=== PATIENT | male | born 1955 | race Caucasian/White ===

== ENCOUNTER 2017-07-23 10:04 | Inpatient (IN) | payer OTHER ==
[~2017-07-23] VITALS: Ht 167.6 cm; Wt 61.2 kg
[~2017-07-23 10:04] MED LIST: AMLO10TA PO; ASPI81CT89 PO; BENA10TA25 PO; DOCU-299 PO; FINA5TAB1 PO; FURO-570 PO; METO25TE2 PO
[2017-07-23 10:06] VITALS: BP 147/110
--- NOTE | 2017-07-23 10:10 | NUR ---
PATIENT PRESENTS TO ED WITH ABDOMINAL PAIN WITH NAUSEA AND DIARRHEA .SKIN IS PINK/WARM/DRY; AAOX4 WITH EVEN AND STEADY GAIT; PATIENT STATES PAIN OF 5/10 AT THIS TIME; PATIENT POSITIONED FOR COMFORT; HOB ELEVATED; BEDRAILS UP X2; BED DOWN. ER MD MADE AWARE OF PT STATUS.
[2017-07-23] MEDS ORDERED: NACL 0.9% 1,000 ML IV SCH ×2 (10:35→14:18)
[2017-07-23] MEDS ORDERED: DIPHENOXYLATE /ATROPINE 2.5 MG TAB PO ONE (10:35)
[2017-07-23] MEDS ORDERED: ONDANSETRON 4 MG/2 ML VIAL IVP ONE (10:35)
--- NOTE | 2017-07-23 10:58 | NUR ---
PATIENT TAKEN TO CT
[2017-07-23 11:06] LABS: BASOPHILS % (AUTO) 0.2 % (0.0-2.0); EOSINOPHILS # (AUTO) 0.2 K/uL (0-0.4); EOSINOPHILS % (AUTO) 2.5 % (0.0-4.0); HEMATOCRIT 48.3 % (36-52); LYMPHOCYTES # (AUTO) 1.8 K/uL (2.0-11.5); LYMPHOCYTES % (AUTO) 24.7 % (20.5-51.1); MEAN CORPUSCULAR HEMOGLOBIN 28 pg (27-31); MEAN CORPUSCULAR HGB CONC 33 g/dL (33-37); MEAN CORPUSCULAR VOLUME 83.2 fL (80-94); MONOCYTES # (AUTO) 0.5 K/uL (0.8-1.0); MONOCYTES % (AUTO) 6.2 % (1.7-9.3); NEUTROPHILS # (AUTO) 4.9 K/uL (1.8-7.7); NEUTROPHILS % (AUTO) 66.4 % (42.2-75.2); PLATELET COUNT (AUTO) 250 K/uL (140-450); RED CELL DISTRIBUTION WIDTH 15.8 % (11.6-13.7); WHITE BLOOD COUNT (AUTO) 7.4 K/uL (4.8-10.8)
[2017-07-23 11:23] LABS: ALBUMIN 3.4 g/dL (3.4-5.0); ANION GAP 12.9 (8-16); CARBON DIOXIDE 26.3 mmol/L (21-32); CREATININE 1.1 mg/dL (0.7-1.3); POTASSIUM 4.2 mmol/L (3.5-5.1); TOTAL BILIRUBIN 0.9 mg/dL (0.0-1.0)
[2017-07-23 11:30] LABS: APPEARANCE,URINE HAZY (CLEAR); BILIRUBIN,URINE NEGATIVE (NEGATIVE); BLOOD, URINE TRACE-I (NEGATIVE); COLOR,URINE YELLOW (YELLOW); LEUKOCYTE ESTERASE ,URINE NEGATIVE (NEGATIVE); NITRITE, URINE NEGATIVE (NEGATIVE); UGLUCOSE NEGATIVE (NEGATIVE)
[2017-07-23 11:46] LABS: COARSE GRANULAR CASTS,URINE 0-2 /LPF (None Seen); RBC,URINE 0-5 (RARE) /HPF (0-5); WBC,URINE 0-5 (RARE) /HPF (0-5)
--- NOTE | 2017-07-23 14:15 | NUR ---
Michael rothman in [facility] - 07/23/17 at 1418 by CHERYL PATIENT TAKEN TO XRAY
[2017-07-23] MEDS ORDERED: MORPHINE SULFATE 4 MG/ML SYR IVP PRN (14:20)
[2017-07-23] MEDS ORDERED: ACETAMINOPHEN 325 MG TAB PO PRN (14:20)
[2017-07-23] MEDS ORDERED: ONDANSETRON 4 MG/2 ML VIAL IVP PRN (14:20)
--- NOTE | 2017-07-23 14:35 | NUR ---
Patient will be admitted to care of DR. CORTES. Admited to MS. Will go to [id number]. Belongings list completed. Report to LELAND ROBLERO.
[2017-07-23 14:40] VITALS: BP 143/87
--- NOTE | 2017-07-23 14:40 | NUR ---
PT ARRIVED FROM ER IN [facility]. REPORT RECEIVED FROM ER NURSE. PT AWAKE ALERT ORIENTED X4. TRANSFERS SELF FROM [facility] TO BED. RESPIRATIONS EVEN AND UNLABORED. SKIN WARM, DRY, COLOR WITHIN NORMAL LIMITS AND INTACT. INITIAL ASSESSMENT DONE. VITAL SIGNS TAKEN. MRSA SWAB COLLECTED AND SENT TO LAB. PLAN OF CARE REVIEWED. PT ORIENTED TO ROOM AND FLOOR. PT VOICES NO PAIN OR DISCOMFORT. IV SITE INTACT. DAUGHTER AT BEDSIDE. CALL PLASCENCIA WITHIN REACH. SIDE RAILS UP. BED LOCKED IN LOW POSITION. WILL CONTINUE TO MONITOR.
[2017-07-23] MEDS ORDERED: LEVOFLOXACIN 500 MG/D5W PREMIX 100 ML IV SCH (15:00)
[2017-07-23 16:00] VITALS: BP 164/103
--- NOTE | 2017-07-23 16:45 | NUR ---
LELAND ROBLERO SPOKE WITH DR CORTES. PT TO CONTINUE HOME CHEMO MED CABOMETYX. PT MEDICATION SENT TO PHARMACY FOR VERIFICATION.
[2017-07-23] MEDS ORDERED: CABO60TA PO (16:48)
[2017-07-23] MEDS ORDERED: COMMUNICATION ORDER MC SCH (16:55)
[2017-07-23] MEDS ORDERED: CABOMETYX 60 MG PO SCH (17:20)
[2017-07-23 18:55] VITALS: BP 175/92
--- NOTE | 2017-07-23 19:35 | NUR ---
ENDORSED PT TO NIGHT NURSE. PT IN STABLE CONDITION.
--- NOTE | 2017-07-23 19:36 | NUR ---
RECEIVED REPORT FROM DAY SHIFT NURSE FOR CONTINUITY OF CARE. PT AWAKE AOX4. PT IS IN STABLE CONDITION. NO S/S OF DISTRESS. NO SOB.IV LINE RAC 20 NS 50ML/HR. WILL CONTINUE TO MONITOR,.
[2017-07-23] MEDS: METOPROLOL SUCCINATE 50 MG TABER PO SCH (21:23)
[2017-07-23] MEDS: metroNIDAZOLE 500 MG/NS PREMIX 100 ML IV SCH (21:23)
[2017-07-23] MEDS: LOPERAMIDE 2 MG CAP PO PRN (21:23)
--- NOTE | 2017-07-23 22:00 | NUR ---
PT FELT NAUSEA, SO VOMIT BAG GIVEN. WILL CONTINUE TO MONITOR.
[2017-07-24 00:01] VITALS: BP 139/76
--- NOTE | 2017-07-24 00:10 | NUR ---
PT IS AWAKE AND RESTING WATCHING TV NO SOB. NO S/S OF DISTRESS. ON RA. WILL CONTINUE TO MONITOR.
--- NOTE | 2017-07-24 02:36 | NUR ---
PT IS SLEEPING. NO SOB, NO S/S OF DISTRESS. PT ON RA. WILL CONTINUE TO MONITOR.
[2017-07-24 04:00] VITALS: BP 144/81
[2017-07-24] MEDS: metroNIDAZOLE 500 MG/NS PREMIX 100 ML IV SCH ×2 (04:11→14:14)
--- NOTE | 2017-07-24 05:06 | NUR ---
ASSESSED PT PT IS ASLEEP. EASILY AROUSE AND AOX3. NO SOB NO S/S OF DISTRESS.
[2017-07-24 06:37] LABS: BASOPHILS % (AUTO) 0.4 % (0.0-2.0); EOSINOPHILS # (AUTO) 0.1 K/uL (0-0.4); EOSINOPHILS % (AUTO) 2.5 % (0.0-4.0); HEMATOCRIT 40.2 % (36-52); HEMOGLOBIN 13.2 g/dL (12.0-18.0); LYMPHOCYTES # (AUTO) 1.4 K/uL (2.0-11.5); LYMPHOCYTES % (AUTO) 24.6 % (20.5-51.1); MEAN CORPUSCULAR HEMOGLOBIN 28 pg (27-31); MEAN CORPUSCULAR HGB CONC 33 g/dL (33-37); MEAN CORPUSCULAR VOLUME 83.8 fL (80-94); MONOCYTES # (AUTO) 0.4 K/uL (0.8-1.0); MONOCYTES % (AUTO) 6.8 % (1.7-9.3); NEUTROPHILS # (AUTO) 3.7 K/uL (1.8-7.7); NEUTROPHILS % (AUTO) 65.7 % (42.2-75.2); PLATELET COUNT (AUTO) 204 K/uL (140-450); RED CELL DISTRIBUTION WIDTH 15.7 % (11.6-13.7); WHITE BLOOD COUNT (AUTO) 5.7 K/uL (4.8-10.8)
--- NOTE | 2017-07-24 07:32 | NUR ---
GAVE REPORT TO DAY SHIFT NURSE FOR CONTINUITY OF CARE.
--- NOTE | 2017-07-24 07:32 | NUR ---
RECEIVED REPORT FROM LICENSED LOAN OFFICER RN. PATIENT IS AAOX4. HAS NO SIGNS AND SYMPTOMS OF ACUTE DISTRESS NOTED AT THIS TIME. HAS IV TO THE RIGHT AC 20G, INFUSING NS AT 50 ML/HR. SITE IS CLEAN, DRY, PATENT AND INTACT. STILL COMPLAINING OF DIARRHEA. BED IN LOWEST POSITION, SIDE RAILS UP X2, CALL LIGHT WITHIN REACH. WILL CONTINUE TO MONITOR.
[2017-07-24 07:58] LABS: ALBUMIN 2.5 g/dL (3.4-5.0); CARBON DIOXIDE 27.6 mmol/L (21-32); CREATININE 0.9 mg/dL (0.7-1.3); POTASSIUM 4.6 mmol/L (3.5-5.1); TOTAL BILIRUBIN 0.8 mg/dL (0.0-1.0)
[2017-07-24 08:00] VITALS: BP 144/84
[2017-07-24] MEDS ORDERED: ENOXAPARIN 30 MG/0.3 ML SYR SUBQ SCH (09:00)
[2017-07-24] MEDS ORDERED: FUROSEMIDE 40 MG TAB PO SCH (09:00)
[2017-07-24] MEDS ORDERED: amLODIPine 5 MG TAB PO SCH ×2 (09:00)
[2017-07-24] MEDS ORDERED: ASPIRIN 81 MG TAB.CHEW PO SCH (09:00)
[2017-07-24] MEDS ORDERED: FINASTERIDE 5 MG TAB PO SCH (09:00)
[2017-07-24] MEDS: METOPROLOL SUCCINATE 50 MG TABER PO SCH (09:00)
[2017-07-24] MEDS ORDERED: BENAZEPRIL 20 MG TAB PO SCH (09:00)
--- NOTE | 2017-07-24 09:14 | NUR ---
PATIENT HAS BEEN SCREENED AND CATEGORIZED HIGH NUTRITION RISK. PATIENT WILL BE SEEN WITHIN 1-2 DAYS OF ADMISSION. 07/24/17 - 07/25/[address]
[2017-07-24] MEDS: LOPERAMIDE 2 MG CAP PO PRN (09:15)
--- NOTE | 2017-07-24 09:15 | NUR ---
GAVE IMODIUM WITH MORNING MEDS. TOLERATED WELL.
--- NOTE | 2017-07-24 12:18 | NUR ---
FAXED INITIAL REVIEW TO [facility] [phone] PHONE GULSHAN [phone]
--- NOTE | 2017-07-24 15:04 | NUR ---
P.T. NOTES P.T. DANIELA COMPLETED; NURSING TO AMBULATE PATIENT AD ANAYELI. (LATE ENTRY FOR 07/23/17) Addendum: 07/24/17 at 1505 by Viry Flores PT Amended: Links added.
--- NOTE | 2017-07-24 15:17 | NUR ---
07/24/17 RD INITIAL ASSESSMENT COMPLETED PLEASE REFER TO NUTRITION ASSESSMENT UNDER CARE ACTIVITY FOR ESTIMATED NUTRITIONAL NEEDS. 1. CONTINUE 2 GM NA DIET TOLERATED 2. PROVIDE BOOST TO PT IN MEALS 3. PROVIDED NUTRITION EDUCATION FOR ONCOLOGY 4. RD TO FOLLOW-UP 2-3 DAYS, HIGH RISK IAN RAY RD
--- NOTE | 2017-07-24 16:25 | NUR ---
DISCHARGE ORDER IS IN PLACE. GAVE PATIENT INSTRUCTIONS TO FOLLOW UP WITH PRIMARY CARE PHYSICIAN. MADE PATIENT AWARE THAT DR CORTES WROTE HIM A PRESCRIPTION AND THAT IT IS WITH HIS PAPERS. EDUCATED PATIENT ON IMPORTANCE OF DRINKING PLENTY OF FLUIDS IF HE EXPERIENCES MORE DIARRHEA, AND TO EAT A WELL BALANCED DIET. ALSO GAVE EDUCATION ON PRECAUTIONS TO TAKE WHILE ON CHEMOTHERAPY AND PROVIDED EDUCATION PAPERWORK. PATIENT VERBALIZED UNDERSTANDING. REMOVED IV FROM SITE, AND ID BANDS REMOVED. SITE IS CLEAN AND DRY. ALL BELONGINGS ARE WITH PATIENT. WILL WALK OUT WITH PATIENT.
== END 2017-07-24 16:30 | disposition home or self-care (01) | DRG 249 ==
LOC: MED 10:04 → MERGE 12:24 → MMU 12:24 → MTU 13:51
PROVIDERS: ADMIT Hospitalist; ATTEND Hospitalist
DX: K52.1 Toxic gastroenteritis and colitis (principal); C78.00 Secondary malignant neoplasm of unspecified lung; C64.9 Malignant neoplasm of unspecified kidney, except renal pelvis; I10 Essential (primary) hypertension; E78.5 Hyperlipidemia, unspecified; T45.1X5A Adverse effect of antineoplastic and immunosuppressive drugs, initial encounter; Z79.899 Other long term (current) drug therapy; Z90.5 Acquired absence of kidney; Y92.89 Other specified places as the place of occurrence of the external cause; Z79.82 Long term (current) use of aspirin
CPT/HCPCS: 36415; 80053; 81001; 83605; 85025; 85610; 85730; 87040; 87045; 87070; 87081; 87177; 89055; 93005; 96361; 96374; 97140; 99285; J1650; J1956; J2270; J2405; J3490; J7030

== ENCOUNTER 2017-08-14 06:43 | Emergency (ER) | payer OTHER ==
[~2017-08-14] VITALS: Ht 167.6 cm; Wt 54.0 kg
[~2017-08-14 06:43] MED LIST changes: +CABO60TA PO; -DOCU-299 PO; -FURO-570 PO
[2017-08-14 06:47] VITALS: BP 128/76
--- NOTE | 2017-08-14 06:54 | NUR ---
PT.BIB VIA W/C TO ER BED 7
--- NOTE | 2017-08-14 07:00 | NUR ---
62/M CAME IN ED, C/O 2/10 CRAMPING RUQ/DIFFUSE ABD PAIN, X7 HOURS SINCE MIDNIGHT. PT REPORTS N/V X3, D X7. PT DENIES BLOOD IN EMESIS OR BM. BS HYPOACTIVE X4, ABD SOFT, ROUND, SLIGHT TENDERNESS ON RUQ, PT DENIES BL LOWER QUADRANT TENDERNESS. LBM TODAY. MED HX KIDNEY CA, HTN, HLD. PT TAKES CANCER MEDICATIONS. SKIN IS INTACT, PINK/WARM/DRY; AAOX4, PERRL, WITH EVEN AND STEADY GAIT; LUNGS CLEAR BL, BREATHING UNLABORED; HR EVEN AND REGULAR, BL PERIPHERAL PULSES PRESENT; PT DENIES ANY FEVER, CP, SOB, OR COUGH AT THIS TIME; PT STATES 0/10 PAIN AT THIS TIME; VSS; PATIENT POSITIONED FOR COMFORT; HOB ELEVATED; BEDRAILS UP X2; BED DOWN.
--- NOTE | 2017-08-14 07:15 | NUR ---
Pt report given to LELAND SHAW. Transfer of care at this time.
[2017-08-14] MEDS ORDERED: NACL 0.9% 1,000 ML IV SCH (07:37)
[2017-08-14] MEDS ORDERED: ONDANSETRON 4 MG/2 ML VIAL IVP ONE (07:40)
[2017-08-14] MEDS ORDERED: MORPHINE SULFATE 4 MG/ML SYR IVP ONE (07:40)
--- NOTE | 2017-08-14 08:02 | NUR ---
FACIAL GRIMACING NOTED AND ACTIVE VOMITTING, MEDICATED ORDERED. 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 FRIEND AT BEDSIDE.
[2017-08-14 08:04] LABS: BASOPHILS % (AUTO) 0.3 % (0.0-2.0); EOSINOPHILS # (AUTO) 0.1 K/uL (0-0.4); EOSINOPHILS % (AUTO) 2.1 % (0.0-4.0); HEMATOCRIT 47.7 % (36-52); HEMOGLOBIN 15.9 g/dL (12.0-18.0); LYMPHOCYTES # (AUTO) 1.2 K/uL (2.0-11.5); LYMPHOCYTES % (AUTO) 19.7 % (20.5-51.1); MEAN CORPUSCULAR HEMOGLOBIN 29 pg (27-31); MEAN CORPUSCULAR HGB CONC 33 g/dL (33-37); MEAN CORPUSCULAR VOLUME 85.5 fL (80-94); MONOCYTES # (AUTO) 0.3 K/uL (0.8-1.0); MONOCYTES % (AUTO) 4.9 % (1.7-9.3); NEUTROPHILS # (AUTO) 4.3 K/uL (1.8-7.7); PLATELET COUNT (AUTO) 173 K/uL (140-450); RED BLOOD CELL COUNT(AUTO) 5.58 MIL/uL (4.20-6.10); WHITE BLOOD COUNT (AUTO) 5.9 K/uL (4.8-10.8)
--- NOTE | 2017-08-14 08:07 | NUR ---
PT TO CT SCAN.
--- NOTE | 2017-08-14 08:22 | NUR ---
NAKITA MCKNIGHT [phone]. FRIEND WHERE PT RESIDES.
[2017-08-14 08:46] LABS: ALBUMIN 3.8 g/dL (3.4-5.0); ANION GAP 15.6 (8-16); CARBON DIOXIDE 25.3 mmol/L (21-32); CREATININE 1.3 mg/dL (0.7-1.3); POTASSIUM 3.9 mmol/L (3.5-5.1)
[2017-08-14] MEDS ORDERED: NACL 0.9% 1,000 ML IV ONE (10:00)
[2017-08-14 11:10] VITALS: BP 133/72
--- NOTE | 2017-08-14 11:32 | NUR ---
DR SHERMAN AT BEDSIDE FOR RE-EVALUATION, IN NAD. PT REPORTS FEELING BETTER AFTER PAIN AND NAUSEA MED. VSS.
--- NOTE | 2017-08-14 11:46 | NUR ---
Patient discharged with v/s stable. Written and verbal after care instructions given and explained. Patient alert, oriented and verbalized understanding of instructions. Ambulatory with to car. All questions addressed prior to discharge. ID band removed. Patient advised to follow up with PMD. Rx of PERCOCET, ZOFRAN given. Patient educated on indication of medication including possible reaction and side effects. Opportunity to ask questions provided and answered.
[2017-08-14 15:38] LABS: TOTAL BILIRUBIN 1.8 mg/dL (0.0-1.0)
== END 2017-08-14 11:46 | disposition home or self-care (01) ==
LOC: MED 06:43
DX: R19.7 Diarrhea, unspecified (principal); E86.0 Dehydration; R11.2 Nausea with vomiting, unspecified; I10 Essential (primary) hypertension; E78.5 Hyperlipidemia, unspecified; Z79.82 Long term (current) use of aspirin; Z85.528 Personal history of other malignant neoplasm of kidney; Z90.5 Acquired absence of kidney; Z79.899 Other long term (current) drug therapy
CPT/HCPCS: 36415; 74176; 80053; 83605; 83690; 85025; 87040; 96361; 96374; 96375; 99285; J2270

== ENCOUNTER 2017-08-24 23:21 | Observation (INO) | payer OTHER ==
[~2017-08-24] VITALS: Ht 167.6 cm; Wt 44.9 kg
--- NOTE | 2017-08-24 23:27 | NUR ---
PT TAKEN TO BED 11
[2017-08-24 23:35] VITALS: BP 188/109
--- NOTE | 2017-08-24 23:39 | NUR ---
Dr. Gonzalez evaluating patient at bedside.
[2017-08-24] MEDS ORDERED: NITROGLYCERIN 2% 1 GM PKT TP ONE (23:40)
[2017-08-24] MEDS ORDERED: ENALAPRILAT 2.5 MG/2 ML VIAL IVP ONE (23:40)
[2017-08-24] MEDS ORDERED: MORPHINE SULFATE 4 MG/ML SYR IVP ONE (23:40)
[2017-08-24] MEDS ORDERED: LORazepam 2 MG/ML VIAL IVP ONE (23:55)
--- NOTE | 2017-08-24 23:56 | NUR ---
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 PT STATES HE WAS AT REST WHEN PAIN STARTED, CP IS STERNAL AND RADIATING TO BACK 10/10. RR ARE EVEN AND UNLABORED, PT IS MOANING IN PAIN AND RUBBING CHEST. PT STATES HE HAS ACTIVE CANCER OF KIDNEYS AND HTN. PT DOES NOT RECALL IF HE TOOK HIS HTN MEDS THIS AM.
[2017-08-24 23:59] LABS: BASOPHILS % (AUTO) 0.5 % (0.0-2.0); EOSINOPHILS # (AUTO) 0.1 K/uL (0-0.4); EOSINOPHILS % (AUTO) 3.2 % (0.0-4.0); HEMATOCRIT 43.1 % (36-52); HEMOGLOBIN 14.5 g/dL (12.0-18.0); LYMPHOCYTES # (AUTO) 1.7 K/uL (2.0-11.5); LYMPHOCYTES % (AUTO) 36.6 % (20.5-51.1); MEAN CORPUSCULAR HEMOGLOBIN 29 pg (27-31); MEAN CORPUSCULAR HGB CONC 34 g/dL (33-37); MONOCYTES # (AUTO) 0.2 K/uL (0.8-1.0); MONOCYTES % (AUTO) 5.5 % (1.7-9.3); NEUTROPHILS # (AUTO) 2.5 K/uL (1.8-7.7); NEUTROPHILS % (AUTO) 54.2 % (42.2-75.2); PLATELET COUNT (AUTO) 162 K/uL (140-450); RED BLOOD CELL COUNT(AUTO) 5.01 MIL/uL (4.20-6.10); WHITE BLOOD COUNT (AUTO) 4.5 K/uL (4.8-10.8)
[2017-08-25] VITALS (7 sets, daily range): BP systolic 90–134; BP diastolic 57–85
[2017-08-25 00:09] LABS: CARBON DIOXIDE 26.9 mmol/L (21-32); CREATININE 1.1 mg/dL (0.7-1.3); POTASSIUM 3.9 mmol/L (3.5-5.1)
[2017-08-25 00:10] LABS: CHOL/HDL RATIO 5.1 (1-4.5); RED CELL DISTRIBUTION WIDTH 22.8 % (11.6-13.7)
[2017-08-25 00:12] LABS: ALBUMIN 3.4 g/dL (3.4-5.0); TOTAL BILIRUBIN 2.1 mg/dL (0.0-1.0)
[2017-08-25 00:21] LABS: CREATINE KINASE MB 0.7 ng/mL (0-3.6)
[2017-08-25] MEDS ORDERED: ACETAMINOPHEN 325 MG TAB PO PRN (00:25)
[2017-08-25] MEDS ORDERED: ONDANSETRON 4 MG/2 ML VIAL IVP PRN (00:25)
[2017-08-25] MEDS ORDERED: HYDROcodone/APAP 5/325 MG 1 TAB TAB PO PRN (00:25)
[2017-08-25] MEDS ORDERED: MORPHINE SULFATE 4 MG/ML SYR IVP PRN (00:25)
[2017-08-25] MEDS ORDERED: NITROGLYCERIN 0.4 MG TAB SL PRN (00:35)
[2017-08-25] MEDS ORDERED: hydrALAZINE 25 MG TAB PO PRN ×2 (00:35→11:31)
--- NOTE | 2017-08-25 01:15 | NUR ---
RECEIVED PT FROM ER NURSE VIA DELL, DROWSY BUT RESPOND TO VERBAL STIMULI. NO RESPIRATORY DISTRESS NOTED.
--- NOTE | 2017-08-25 01:26 | NUR ---
Patient will be admitted to care of DR. PERLA. Admited to TELE. Will go to [id number]. Belongings list completed. Report to
--- NOTE | 2017-08-25 01:35 | NUR ---
RECEIVED FROM CHARGE NURSE REPORT PT. SLEEPING. FEMALE COUSIN WITH PT. AND ABLE TO ANSWER IN BEHALF OF PT. PT. SLEEPY BUT ABLE TO ANSWER QUESTIONS EVERY NOW AND THEN. AFEBRILE. SKIN INTACT. DX. OF CHEST PAIN. MEDICATED IN ER. TELEMETRY MONITORING. CARE PLANS FOR THE NIGHT DISCUSSED WITH HIM AND COUSIN. CALL LIGHT WITH IN REACH AT BEDSIDE FOR HELP. PLACED ON 02 AT 2 LPM/NC TO KEEP 02 SAT ABOVE 92 %. [address] RT PT. HAVE CHEST PAIN COMPLAINT AND AT PRESENT 02 SAT GOES DOWN TO 91 %. WILL MONITOR CLOSELY. NO EDEMA NOTED.
--- NOTE | 2017-08-25 05:56 | NUR ---
PT. BEEN SLEEPING MOST OF THE TIME. WAKES UP WHEN TOUCHED. ABLE TO VERBALIZE SIMPLE NEEDS. CALL LIGHT WITH IN REACH. NO SOB. NO RESTLESSNESS.
--- NOTE | 2017-08-25 08:00 | NUR ---
RECEIVED REPORT FROM JACYE RN FOR CONTINUITY OF CARE. PATIENT AWAKE A/OX4, NO S/S OF RESP DISTRESS NOTED, NO COMPLAIN OF PAIN. ABLE TO MAKE NEEDS KNOWN. IV SITE RT FOREARM GAUGE 22 ,INTACT AND PATENT. PLAN OF CARE DISCUSSED WITH THE PATIENT VITALS STABLE WILL CONTINUE TO MONITOR.
[2017-08-25] MEDS ORDERED: amLODIPine 5 MG TAB PO SCH (09:00)
[2017-08-25] MEDS ORDERED: METOPROLOL SUCCINATE 50 MG TABER PO SCH (09:00)
--- NOTE | 2017-08-25 09:00 | NUR ---
DUE MEDS GIVEN TOLERATED WELL , NO N/V . DR PERLA VISITED PATIENT NEW ORDER CARRIED OUT.
[2017-08-25] MEDS: FINASTERIDE 5 MG TAB PO SCH (09:11)
[2017-08-25 09:19] LABS: CREATINE KINASE MB 0.6 ng/mL (0-3.6)
--- NOTE | 2017-08-25 09:49 | NUR ---
PATIENT HAS BEEN SCREENED AND CATEGORIZED HIGH NUTRITION RISK. PATIENT WILL BE SEEN WITHIN 1-2 DAYS OF ADMISSION. 08/25/17 08/26/[address]
--- NOTE | 2017-08-25 11:00 | NUR ---
SPOKE WITH REMEDIOS TO BRING CHEMO MEDS , AND TO CLARIFY THE NORVASC.
--- NOTE | 2017-08-25 12:00 | NUR ---
SLEEPING NO DISTRESS NOTED DENIES ANY PAIN VITALS STABLE
--- NOTE | 2017-08-25 13:00 | NUR ---
ASSIST PATIENT TO BATHROOM , UNSTEADY GAIT , SAFETY ENFORCED AND MAINTAINED.
--- NOTE | 2017-08-25 15:17 | NUR ---
FAXED INITIAL REVIEW TO [facility] [phone] PHONE GULSHAN [phone]
--- NOTE | 2017-08-25 15:28 | NUR ---
FAMILY DAUGHTER AT THE BED SIDE STATED NO INFORMATION TO BE GIVEN TO REMEDIOS BECAUSE REMEDIOS IS NOT RELATED TO THE PATIENT. ADVISED DAUGHTER TO GO TO ADMITTING AND SUBMIT ALL THE CONTACT INFORMATION.
[2017-08-25 16:23] LABS: CREATINE KINASE MB 0.5 ng/mL (0-3.6)
--- NOTE | 2017-08-25 18:58 | NUR ---
FAMILY MEMBER DIDN'T QUOC THE CHEMO MEDS , STILL WAITING WILL ENDORSE THE CARE TO COURT COMMISSIONER . SAFETY MAINTAINED CALL LIGHT IN REACH
--- NOTE | 2017-08-25 19:25 | NUR ---
RECEIVED PT IN STABLE CONDITION FROM AM NURSE. PT IS AWAKE,ALERT AND ORIENTED X4. 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 WITH NO C/O ANY DISCOMFORT NOR PAIN NOTED. HAS FAMILY MEMBER AT BEDSIDE. HL ON THE RT AC #22. CLEAR AND PATENT. BED ON LOWEST POSITION, CALL LIGHT AND URINAL PLACED WITHIN EASY REACH.INSTRUCTED TO CALL FOR ANY ASSISTANCE NEEDED. PLAN OF CARE DISCUSSED AND VERBALIZED UNDERSTANDING.
[2017-08-25] MEDS ORDERED: [UNRECOGNIZED DRUG - OTHER] PO SCH (20:00)
[2017-08-25] MEDS: METOPROLOL 25 MG TAB PO SCH (20:42)
--- NOTE | 2017-08-25 22:20 | NUR ---
DR. BELTRAN CALLED AND GET INFORMATION ABOUT PT CONDITION. HE SAID CHARGE NURSE TO CALL HIM TOMORROW FOR ANY UPDATE ON PT.
--- NOTE | 2017-08-26 01:00 | NUR ---
MADE ROUNDS. PT ASLEEP. NO S/S OF ANY DISCOMFORT NOR PAIN NOTED.
--- NOTE | 2017-08-26 03:00 | NUR ---
PT SLEEPING . NO DISTRESS NOR DISCOMFORT NOTED. WILL CONTINUE TO MONITOR.
[2017-08-26 04:35] VITALS: BP 129/79
--- NOTE | 2017-08-26 05:00 | NUR ---
SLEPT WELL DURING THE NIGHT WITH NO CHEST PAIN NOTED.WILL CONTINUE TO MONITOR.
[2017-08-26 06:10] LABS: BASOPHILS % (AUTO) 0.5 % (0.0-2.0); EOSINOPHILS # (AUTO) 0.1 K/uL (0-0.4); HEMATOCRIT 34.7 % (36-52); HEMOGLOBIN 11.6 g/dL (12.0-18.0); LYMPHOCYTES # (AUTO) 1.7 K/uL (2.0-11.5); MEAN CORPUSCULAR HEMOGLOBIN 29 pg (27-31); MEAN CORPUSCULAR HGB CONC 34 g/dL (33-37); MEAN CORPUSCULAR VOLUME 86.3 fL (80-94); MONOCYTES # (AUTO) 0.3 K/uL (0.8-1.0); MONOCYTES % (AUTO) 5.9 % (1.7-9.3); NEUTROPHILS # (AUTO) 3.2 K/uL (1.8-7.7); NEUTROPHILS % (AUTO) 60.6 % (42.2-75.2); PLATELET COUNT (AUTO) 127 K/uL (140-450); RED BLOOD CELL COUNT(AUTO) 4.02 MIL/uL (4.20-6.10); RED CELL DISTRIBUTION WIDTH 22.8 % (11.6-13.7); WHITE BLOOD COUNT (AUTO) 5.3 K/uL (4.8-10.8)
[2017-08-26] MEDS ORDERED: [UNRECOGNIZED DRUG - OTHER] PO SCH (06:30)
[2017-08-26 06:55] LABS: ALBUMIN 2.6 g/dL (3.4-5.0); ANION GAP 12.1 (8-16); MAGNESIUM 1.7 mg/dL (1.8-2.4); POTASSIUM 4.1 mmol/L (3.5-5.1); TOTAL BILIRUBIN 1.8 mg/dL (0.0-1.0)
--- NOTE | 2017-08-26 07:25 | NUR ---
ENDORSED PT IN STABLE CONDITION TO AM NURSE.
--- NOTE | 2017-08-26 07:26 | NUR ---
RECEIVED REPORT FROM NIGHT RN MADDIE AT PT BEDSIDE. PATIENT IS ALERT AND ORIENTED. PATIENT DENIES CHEST PAIN. NO S/S OF ACUTE RESPIRATORY DISTRESS NOTED ON ROOM AIR. IV SITE PATENT AND INTACT. CALL LIGHT WITHIN REACH.
[2017-08-26 08:00] VITALS: BP 121/75
[2017-08-26] MEDS: FINASTERIDE 5 MG TAB PO SCH (08:33)
[2017-08-26] MEDS ORDERED: amLODIPine 5 MG TAB PO SCH (09:00)
[2017-08-26] MEDS ORDERED: COMMUNICATION ORDER MC SCH (09:00)
[2017-08-26] MEDS: METOPROLOL 25 MG TAB PO SCH (09:26)
[2017-08-26] MEDS ORDERED: AMLO10TA PO (10:14)
--- NOTE | 2017-08-26 11:50 | NUR ---
Clinical Review faxed to [facility] at [phone]
[2017-08-26 12:00] VITALS: BP 140/61
--- NOTE | 2017-08-26 12:00 | NUR ---
PATIENT AMBULATORY TO BATHROOM. DENIES DISCOMFORT AT THIS TIME. IV SITE PATENT AND INTACT.
[2017-08-26] MEDS ORDERED: MAGNESIUM SULFATE 50% 1,000 MG in NACL 0.9% 50 ML IV SCH (13:00)
--- NOTE | 2017-08-26 14:06 | NUR ---
08/26/17 RD INITIAL ASSESSMENT COMPLETED PLEASE REFER TO NUTRITION ASSESSMENT UNDER CARE ACTIVITY FOR ESTIMATED NUTRITIONAL NEEDS. 1. CONTINUE CARDIAC DIET TOLERATED 2. RECOMMEND BOOST PLUS TID WITH DIFFERENT FLAVORS PER MEAL TO INCREASE NUTRIENT INTAKE. 3. RECOMMEND APPLESAUCE FOR MORNING SNACK AND PUDDING OR JELLO FOR AFTERNOON SNACK. 4. RD TO FOLLOW-UP 2-3 DAYS, HIGH RISK IAN RAY, RD
[2017-08-26 16:00] VITALS: BP 127/77
--- NOTE | 2017-08-26 16:57 | NUR ---
MAG RIDER COMPLETED, NO ACUTE DISTRESS NOTED.
--- NOTE | 2017-08-26 17:20 | NUR ---
SPOKE WITH DR. BOBBY Valentin REGARDING ECHO RESULTS, PATIENT IS CLEARED FOR CARDIAC CONSULTATION. DR. PERLA MADE AWARE OF CLEARANCE, PATIENT TO BE DISCHARGED HOME WITH MEDICATION ADJUSTMENT.
--- NOTE | 2017-08-26 18:00 | NUR ---
PATIENT'S DAUGHTER AT BEDSIDE TO TAKE PATIENT HOME. PATIENT DISCHARGE INSTRUCTIONS GIVEN WITH MEDICATION EDUCATION, VERBALIZED UNDERSTANDING. F/U TEACHING GIVEN, PATIENT IN AGREEMENT. IV REMOVED, CANULA INTACT. DENIES PAIN/DISCOMFORT AT THIS TIME. NO S/S OF ACUTE DISTRESS NOTED. PATIENT WHEELED TO FRONT LOBBY. HOME MEDICATIONS AND BELONGINGS SENT WITH PATIENT.
== END 2017-08-26 18:00 | disposition home or self-care (01) ==
LOC: MED 23:21 → MTU 08-25 00:22 → INTOOBSV 08-25 00:22 → MTU 08-25 04:25
PROVIDERS: ADMIT Internal Medicine; ATTEND Internal Medicine
DX: R07.89 Other chest pain (principal); I16.9 Hypertensive crisis, unspecified; E78.5 Hyperlipidemia, unspecified; I11.9 Hypertensive heart disease without heart failure; R94.31 Abnormal electrocardiogram [ECG] [EKG]; R79.89 Other specified abnormal findings of blood chemistry; Z90.5 Acquired absence of kidney; Z87.891 Personal history of nicotine dependence; Z85.528 Personal history of other malignant neoplasm of kidney
CPT/HCPCS: 36415; 71045; 78582; 80053; 80061; 82550; 82553; 83735; 83880; 84100; 84484; 85025; 85379; 87081; 93005; 93307; 96365; 96366; 96375; 99291; A9540; G0378; J1644; J2060; J2270; J2405; J3475; J3490; J7030; 96374

== ENCOUNTER 2017-10-07 20:13 | Emergency (ER) | payer OTHER ==
[~2017-10-07] VITALS: Ht 167.6 cm; Wt 61.0 kg
[~2017-10-07 20:13] MED LIST changes: -ASPI81CT89 PO
[2017-10-07 20:15] VITALS: BP 109/77
--- NOTE | 2017-10-07 20:58 | NUR ---
LABORATORY PERFORMING DRAW.
--- NOTE | 2017-10-07 21:03 | NUR ---
PATIENT TAKEN TO XRAY WITH TECH VIA WHEELCHAIR.
--- NOTE | 2017-10-07 21:08 | NUR ---
PT BACK TO LOBBY FROM XRAY.
[2017-10-07 21:13] LABS: BASOPHILS # (AUTO) 0.1 K/uL (0.00-0.22); BASOPHILS % (AUTO) 1.2 % (0.0-2.0); EOSINOPHILS # (AUTO) 0.3 K/uL (0-0.4); EOSINOPHILS % (AUTO) 3.8 % (0.0-4.0); HEMATOCRIT 33.6 % (36-52); HEMOGLOBIN 10.9 g/dL (12.0-18.0); LYMPHOCYTES # (AUTO) 1.4 K/uL (2.0-11.5); LYMPHOCYTES % (AUTO) 19.5 % (20.5-51.1); MEAN CORPUSCULAR HEMOGLOBIN 30 pg (27-31); MEAN CORPUSCULAR HGB CONC 33 g/dL (33-37); MEAN CORPUSCULAR VOLUME 91.3 fL (80-94); MONOCYTES # (AUTO) 0.4 K/uL (0.8-1.0); MONOCYTES % (AUTO) 5.9 % (1.7-9.3); NEUTROPHILS # (AUTO) 4.9 K/uL (1.8-7.7); NEUTROPHILS % (AUTO) 69.6 % (42.2-75.2); PLATELET COUNT (AUTO) 324 K/uL (140-450); RED BLOOD CELL COUNT(AUTO) 3.68 MIL/uL (4.20-6.10); RED CELL DISTRIBUTION WIDTH 18.3 % (11.6-13.7)
[2017-10-07 21:25] LABS: ANION GAP 12.6 (8-16); CARBON DIOXIDE 28.1 mmol/L (21-32); CREATININE 1.2 mg/dL (0.7-1.3); POTASSIUM 4.7 mmol/L (3.5-5.1)
[2017-10-07 21:28] LABS: PROTHROMBIN TIME 10.9 secs (10.8-13.4)
[2017-10-07 21:30] LABS: ALBUMIN 3.2 g/dL (3.4-5.0); TOTAL BILIRUBIN 0.4 mg/dL (0.0-1.0)
--- NOTE | 2017-10-07 21:53 | NUR ---
Patient ambulated to bed 6 with family. RN evaluating patient at bedside.
--- NOTE | 2017-10-07 22:00 | NUR ---
PT BIB SELF C/O STERNAL CHEST PAIN RADIATING TO RT SIDE OF CHEST FOR 3 DAYS. NO TRAUMA TO AFFECTED AREA. NO SOB. PT HAS HX OF KIDNEY CANCER, RT KIDNEY REMOVAL, DM. PT IS LAYING IN BED, FACIAL GRIMACING WHEN MOVING RT UPPER EXTREMITY.
--- NOTE | 2017-10-08 00:32 | NUR ---
Dr. Alfred evaluating patient at bedside.
[2017-10-08] MEDS ORDERED: MORPHINE SULFATE 4 MG/ML SYR IM ONE (00:45)
[2017-10-08 01:21] VITALS: BP 127/56
== END 2017-10-08 01:22 | disposition home or self-care (01) ==
LOC: MED 20:13
DX: R07.89 Other chest pain (principal); R05 Cough; R11.0 Nausea
CPT/HCPCS: 36415; 71045; 80053; 83880; 84484; 85025; 85610; 85730; 93005; 96372; 99285; J2270

== ENCOUNTER 2017-12-01 13:01 | Emergency (ER) | payer OTHER ==
[~2017-12-01] VITALS: Ht 167.6 cm; Wt 61.2 kg
[2017-12-01 13:17] VITALS: BP 152/68
--- NOTE | 2017-12-01 14:30 | NUR ---
C/O ABSCESS INTHE BACK DRAINED 3 DAYS AGO IN AN URGENT CARE DEPT IN [place] LOOSE STURES NOTED INTACT---SWELLING REDNESS NOTED . DENIES N/V/D; SKIN IS PINK/WARM/DRY; AAOX4 WITH EVEN AND STEADY GAIT; LUNGS CLEAR BL; HR EVEN AND REGULAR; PT DENIES ANY FEVER, CP, SOB, OR COUGH AT THIS TIME; PATIENT STATES PAIN OF 8/10 AT THIS TIME; VSS; PATIENT POSITIONED FOR COMFORT; HOB ELEVATED; BEDRAILS UP X2; BED DOWN. ER MD MADE AWARE OF PT STATUS.
[2017-12-01] MEDS ORDERED: CLINDAMYCIN 600 MG/4 ML VIAL IM ONE (15:10)
[2017-12-01] MEDS ORDERED: MORPHINE SULFATE 2 MG/ML SYR IM ONE (15:10)
[2017-12-01] MEDS ORDERED: NEOMYCIN/POLYMYXIN/BACITRACIN 0.9 GM/1 PKT TP ONE ×2 (15:25→15:29)
[2017-12-01 16:15] VITALS: BP 138/69
--- NOTE | 2017-12-01 16:15 | NUR ---
Patient discharged with v/s stable. Written and verbal after care instructions given and explained. Patient alert, oriented and verbalized understanding of instructions. Ambulatory with steady gait. All questions addressed prior to discharge. ID band removed. Patient advised to follow up with PMD. Rx of CLINDYMYCIN given. Patient educated on indication of medication including possible reaction and side effects. Opportunity to ask questions provided and answered.
== END 2017-12-01 16:15 | disposition home or self-care (01) ==
LOC: MED 13:01
DX: L02.212 Cutaneous abscess of back [any part, except buttock and flank] (principal); E11.9 Type 2 diabetes mellitus without complications; I10 Essential (primary) hypertension; Z88.8 Allergy status to other drugs, medicaments and biological substances
CPT/HCPCS: 96372; 99284; J2270; J3490

== ENCOUNTER 2017-12-15 22:37 | Emergency (ER) | payer OTHER ==
[~2017-12-15] VITALS: Ht 167.6 cm; Wt 60.8 kg
--- NOTE | 2017-12-15 22:38 | NUR ---
PT [facility] BLS. TAKEN TO BED 6
[2017-12-15 22:44] VITALS: BP 115/60
--- NOTE | 2017-12-15 22:45 | NUR ---
ASSUMED CARE OF PT AT THIS TIME. C/O SUDDEN ONSET LEFT UPPER BACK PAIN X 30 MINUTES PT DENIES CP, SOB, OR TRAUMA. PT DENIES ANY PAIN AT THIS TIME. PMH=RENAL CA W/. RECENT CHEMO. AAOX4 WITH EVEN AND STEADY GAIT; PATIENT STATES PAIN OF 0/10; VSS; PATIENT POSITIONED FOR COMFORT; HOB ELEVATED; BEDRAILS UP X2; BED DOWN. ER MD MADE AWARE OF PT STATUS. WILL CONTINUE TO MONITOR.
--- NOTE | 2017-12-15 22:58 | NUR ---
Dr. Camargo evaluating patient at bedside.
--- NOTE | 2017-12-15 23:18 | NUR ---
X-Ray at bedside.
[2017-12-15 23:37] LABS: BASOPHILS % (AUTO) 0.6 % (0.0-2.0); EOSINOPHILS # (AUTO) 0.1 K/uL (0-0.4); EOSINOPHILS % (AUTO) 3.3 % (0.0-4.0); HEMATOCRIT 32.1 % (36-52); HEMOGLOBIN 10.9 g/dL (12.0-18.0); LYMPHOCYTES # (AUTO) 0.8 K/uL (2.0-11.5); LYMPHOCYTES % (AUTO) 20.6 % (20.5-51.1); MEAN CORPUSCULAR HEMOGLOBIN 31 pg (27-31); MEAN CORPUSCULAR HGB CONC 34 g/dL (33-37); MONOCYTES # (AUTO) 0.5 K/uL (0.8-1.0); MONOCYTES % (AUTO) 13.3 % (1.7-9.3); NEUTROPHILS # (AUTO) 2.5 K/uL (1.8-7.7); NEUTROPHILS % (AUTO) 62.2 % (42.2-75.2); PLATELET COUNT (AUTO) 265 K/uL (140-450); RED BLOOD CELL COUNT(AUTO) 3.57 MIL/uL (4.20-6.10); RED CELL DISTRIBUTION WIDTH 17.9 % (11.6-13.7)
--- NOTE | 2017-12-15 23:39 | NUR ---
FAMILY AT BEDSIDE
[2017-12-15 23:48] LABS: ANION GAP 12.1 (8-16); CARBON DIOXIDE 26.9 mmol/L (21-32); CREATININE 1.2 mg/dL (0.7-1.3)
[2017-12-15 23:54] LABS: ALBUMIN 2.7 g/dL (3.4-5.0); TOTAL BILIRUBIN 0.4 mg/dL (0.0-1.0)
[2017-12-16 00:04] LABS: PROTHROMBIN TIME 9.8 secs (10.8-13.4)
[2017-12-16 00:24] VITALS: BP 104/61
--- NOTE | 2017-12-16 00:24 | NUR ---
Patient discharged with v/s stable. Written and verbal after care instructions given and explained. Patient verbalized understanding. Ambulatory with steady gait. All questions addressed prior to discharge. Advised to follow up with PMD.
== END 2017-12-16 00:24 | disposition home or self-care (01) ==
LOC: MED 22:37
DX: R25.2 Cramp and spasm (principal); E11.9 Type 2 diabetes mellitus without complications; I10 Essential (primary) hypertension; Z85.528 Personal history of other malignant neoplasm of kidney; Z79.899 Other long term (current) drug therapy
CPT/HCPCS: 36415; 71045; 80053; 84484; 85025; 85610; 85730; 93005; 99285; Q0092

== ENCOUNTER 2018-02-25 12:01 | Emergency (ER) | payer OTHER ==
[~2018-02-25] VITALS: Ht 177.8 cm; Wt 65.8 kg
[2018-02-25 12:12] VITALS: BP 138/68
[2018-02-25 13:18] VITALS: BP 135/79
== END 2018-02-25 13:19 | disposition home or self-care (01) ==
LOC: MED 12:01
DX: H11.31 Conjunctival hemorrhage, right eye (principal); E11.9 Type 2 diabetes mellitus without complications; I10 Essential (primary) hypertension; Z85.528 Personal history of other malignant neoplasm of kidney; Z79.899 Other long term (current) drug therapy
CPT/HCPCS: 99283

== ENCOUNTER 2018-08-29 21:58 | Emergency (ER) | payer OTHER ==
[~2018-08-29] VITALS: Ht 167.6 cm; Wt 69.9 kg
[2018-08-29 22:08] VITALS: BP 184/72
--- NOTE | 2018-08-29 22:08 | NUR ---
TO BED # 11 AMBULATORY
--- NOTE | 2018-08-29 22:30 | NUR ---
63 YO M BIB SELF PRESENTS TO ED C/O ROUSSEAU X 5 DAYS. PT STATES THE PAIN STARTED OUT A SLIGHT DISCOMFORT BUT BECAME PROGRESSIVELY WORSE X LAST 2 DAYS. IT IS NOW A CONSTANT 7/10 PRESSURE-LIKE PAIN ON THE LEFT SIDE OF HIS HEAD. PT REPORTS TAKING 800 MG MOTRIN AT 1700 WHICH HELPED THE PAIN GO DOWN. PT DENIES N/V/BLURRY VISION. PT IS ALSO C/O DIFFICULTY SWALLOWING/CHEWING D/T SORE ON TONGUE. -- PT APPEARS CALM. IS COOPERATIVE, ANSWERING QUESTIONS APPROPRIATELY. BEHAVIOR APPROPRIATE. -- SKIN PINK, WARM, DRY. BREATHING EVEN, UNLABORED. PMH-- KIDNEY CANCER, LAST CHEMO TX- THURSDAY, HTN SX-- KIDNEY REMOVED, 2010
--- NOTE | 2018-08-29 23:09 | NUR ---
Dr. Tipton evaluating patient at bedside.
[2018-08-29] MEDS ORDERED: DEXAMETHASONE 10 MG/ML VIAL PO ONE (23:25)
[2018-08-29] MEDS ORDERED: NACL 0.9% 1,000 ML IV ONE (23:26)
[2018-08-29] MEDS ORDERED: diphenhydrAMINE 50 MG/ML VIAL IVP ONE (23:30)
[2018-08-29] MEDS ORDERED: methylPREDNISolone SS 125 MG in WATER STERILE 2 ML IV ONE (23:30)
[2018-08-29] MEDS ORDERED: FAMOTIDINE 20 MG/2 ML VIAL IVP ONE (23:30)
--- NOTE | 2018-08-29 23:54 | NUR ---
PT RETURN FROM CT
--- NOTE | 2018-08-30 00:15 | NUR ---
Patient appears to be sleeping comfortably in bed. Vital Signs within normal limits. Respirations even and unlabored. Awaiting CT results.
--- NOTE | 2018-08-30 00:30 | NUR ---
HEAD CT RESULTS- IMPRESSION: There is a focal area of vasogenic edema within the right occipital lobe which is not seen on the prior CT scan. This could be due to an underlying mass. A follow-up brain MRI with and without contrast is recommended for further evaluation.
--- NOTE | 2018-08-30 01:00 | NUR ---
CT WITH CONTRAST ORDERED PER DR. ARANDA.
[2018-08-30 01:02] LABS: BASOPHILS % (AUTO) 0.7 % (0.0-2.0); EOSINOPHILS # (AUTO) 0.2 K/uL (0-0.4); EOSINOPHILS % (AUTO) 3.5 % (0.0-4.0); HEMATOCRIT 40.4 % (36-52); HEMOGLOBIN 13.5 g/dL (12.0-18.0); LYMPHOCYTES # (AUTO) 1.4 K/uL (2.0-11.5); LYMPHOCYTES % (AUTO) 24.9 % (20.5-51.1); MEAN CORPUSCULAR HEMOGLOBIN 28 pg (27-31); MEAN CORPUSCULAR HGB CONC 33 g/dL (33-37); MONOCYTES # (AUTO) 0.5 K/uL (0.8-1.0); MONOCYTES % (AUTO) 8.4 % (1.7-9.3); NEUTROPHILS # (AUTO) 3.5 K/uL (1.8-7.7); NEUTROPHILS % (AUTO) 62.5 % (42.2-75.2); PLATELET COUNT (AUTO) 251 K/uL (140-450); RED BLOOD CELL COUNT(AUTO) 4.81 MIL/uL (4.20-6.10); WHITE BLOOD COUNT (AUTO) 5.6 K/uL (4.8-10.8)
[2018-08-30 01:24] LABS: PROTHROMBIN TIME 9.2 secs (10.8-13.4)
[2018-08-30 01:41] LABS: ANION GAP 14.8 (8-16); CARBON DIOXIDE 26.8 mmol/L (21-32); CREATININE 1.1 mg/dL (0.7-1.3); POTASSIUM 3.6 mmol/L (3.5-5.1)
[2018-08-30 01:46] LABS: ALBUMIN 3.8 g/dL (3.4-5.0); TOTAL BILIRUBIN 0.4 mg/dL (0.0-1.0)
--- NOTE | 2018-08-30 01:56 | NUR ---
PT TAKEN TO CT
--- NOTE | 2018-08-30 02:00 | NUR ---
Note lorna in ED - 08/30/18 at 0326 by [facility] Patient appears to be sleeping comfortably in bed. Vital Signs within normal limits. Respirations even and unlabored.
--- NOTE | 2018-08-30 02:32 | NUR ---
PT RETURNED FROM CT.
--- NOTE | 2018-08-30 03:00 | NUR ---
Patient appears to be sleeping comfortably in bed. Vital Signs within normal limits. Respirations even and unlabored. Awaiting CT results.
[2018-08-30] MEDS ORDERED: TAMS0.4C96 PO (03:40)
[2018-08-30] MEDS ORDERED: IBUP-1842 PO (03:40)
[2018-08-30] MEDS ORDERED: ORE25 PO (03:40)
--- NOTE | 2018-08-30 03:55 | NUR ---
REPORT GIVEN TO LELAND ROMANO AT [facility].
--- NOTE | 2018-08-30 04:00 | NUR ---
Patient to be transferred to [facility]. Is being transferred due to cerebral mass. Receiving facility has accepting physician and available space. ER physician has signed transfer form. Patient or responsible alliance party has agreed to transfer and signed form. Patient belongings inventoried and will be sent with patient. Copy of nursing notes, lab reports, EKG, Physicians Orders and X-rays to be sent with patient. Report called to LELAND Sofia at receiving facility. [facility] ambulance service has been called for transfer. ETA is 1 hour.
--- NOTE | 2018-08-30 05:06 | NUR ---
[facility] AT BEDSIDE
--- NOTE | 2018-08-30 05:14 | NUR ---
PT TAKEN BY LYN TO [facility] ER
[2018-08-30 05:15] VITALS: BP 149/79
--- NOTE | 2018-08-30 05:15 | NUR ---
REPORT GIVEN TO [facility] EMT. PT AWAKE, ALERT, TAKEN VIA GURNEY WITH VSS. PT LEAVING FACILITY AT THIS TIME.
== END 2018-08-30 05:14 | disposition short-term general hospital (02) ==
LOC: MED 21:58
DX: G93.89 Other specified disorders of brain (principal); R20.2 Paresthesia of skin; R47.1 Dysarthria and anarthria; R79.1 Abnormal coagulation profile; E11.9 Type 2 diabetes mellitus without complications; I10 Essential (primary) hypertension; Z90.5 Acquired absence of kidney; Z79.1 Long term (current) use of non-steroidal anti-inflammatories (NSAID); Z79.899 Other long term (current) drug therapy; Z85.528 Personal history of other malignant neoplasm of kidney
CPT/HCPCS: 36415; 70450; 70460; 70486; 80053; 85025; 85610; 85730; 96374; 96375; 99285; J1200; J2930; J3490; Q9967

== ENCOUNTER 2018-09-26 23:14 | Emergency (ER) | payer OTHER ==
[~2018-09-26] VITALS: Ht 167.6 cm; Wt 68.0 kg
[~2018-09-26 23:14] MED LIST changes: -CABO60TA PO; -FINA5TAB1 PO; +IBUP-1842 PO; -METO25TE2 PO; +ORE25 PO; +TAMS0.4C96 PO
[2018-09-26 23:29] VITALS: BP 101/60
--- NOTE | 2018-09-26 23:29 | NUR ---
TO BED # 02 AMBULATORY
--- NOTE | 2018-09-27 00:16 | NUR ---
63 YO M BIB SELF PRESENTS TO ED C/O GENERAL WEAKNESS, DIZZINESS, N/V X 1 DAY. PT STATES HE FELL WHILE HE WAS CLEANING HIS GARAGE. BELIEVES HE MAY HAVE LOC BECAUSE HE CAN'T REMEMBER FALLING. NO GROSS TRAUMA NOTED TO HEAD OR BODY. IS ALSO C/O 7/10 SHARP LOWER BACK PAIN THAT STARTED S/P FALL. -- PT IS AWAKE, A/O X4, CALM, COOPERATIVE. MILD WEAKNESS NOTED TO EXTREMETIES. SPEECH IS CLEAR BUT SLOW. FACIAL SYMMETRY IN TACT. -- SKIN PINK, WARM, DRY. BREATHING EVEN, UNLABORED. PMH-- METASTATIC BRAIN CANCER, CURRENTLY RECEIVING CHEMO, HTN RX-- TAKING AMOXICILLIN FOR THROAT INFECTION Addendum: 09/27/18 at 0100 by [facility] PT STATES HIS LAST CHEMO TX WAS LAST THURSDAY.
[2018-09-27] MEDS ORDERED: NACL 0.9% 1,000 ML IV ONE (01:05)
--- NOTE | 2018-09-27 01:10 | NUR ---
LAB AT BEDSIDE.
[2018-09-27 01:21] LABS: BASOPHILS % (AUTO) 0.7 % (0.0-2.0); EOSINOPHILS # (AUTO) 0.1 K/uL (0-0.4); EOSINOPHILS % (AUTO) 1.7 % (0.0-4.0); HEMATOCRIT 41.9 % (36-52); HEMOGLOBIN 14.1 g/dL (12.0-18.0); LYMPHOCYTES # (AUTO) 1.1 K/uL (2.0-11.5); LYMPHOCYTES % (AUTO) 22.7 % (20.5-51.1); MEAN CORPUSCULAR HEMOGLOBIN 28 pg (27-31); MEAN CORPUSCULAR HGB CONC 34 g/dL (33-37); MEAN CORPUSCULAR VOLUME 83.6 fL (80-94); MONOCYTES # (AUTO) 0.5 K/uL (0.8-1.0); MONOCYTES % (AUTO) 10.7 % (1.7-9.3); NEUTROPHILS # (AUTO) 3.2 K/uL (1.8-7.7); NEUTROPHILS % (AUTO) 64.2 % (42.2-75.2); PLATELET COUNT (AUTO) 141 K/uL (140-450); RED BLOOD CELL COUNT(AUTO) 5.01 MIL/uL (4.20-6.10); RED CELL DISTRIBUTION WIDTH 16.5 % (11.6-13.7); WHITE BLOOD COUNT (AUTO) 4.9 K/uL (4.8-10.8)
--- NOTE | 2018-09-27 01:30 | NUR ---
URINE CUP PROVIDED. PT STATES HE HASN'T HAD FLUIDS ALL DAY. PROVIDED WATER AND IV FLUIDS RUNNING. AWAITING URINE SAMPLE.
[2018-09-27 01:35] LABS: ANION GAP 14.1 (8-16); CARBON DIOXIDE 25.9 mmol/L (21-32); CREATININE 1.3 mg/dL (0.7-1.3)
[2018-09-27 01:41] LABS: ALBUMIN 2.8 g/dL (3.4-5.0); TOTAL BILIRUBIN 1.3 mg/dL (0.0-1.0)
--- NOTE | 2018-09-27 01:45 | NUR ---
EMT PERFORMING EKG AT BEDSIDE.
--- NOTE | 2018-09-27 02:30 | NUR ---
Patient appears to be resting comfortably in bed. Vital Signs within normal limits. Respirations even and unlabored.
[2018-09-27 02:33] LABS: APPEARANCE,URINE CLEAR (CLEAR); BILIRUBIN,URINE NEGATIVE (NEGATIVE); BLOOD, URINE NEGATIVE (NEGATIVE); COLOR,URINE YELLOW (YELLOW); LEUKOCYTE ESTERASE ,URINE NEGATIVE (NEGATIVE); NITRITE, URINE NEGATIVE (NEGATIVE); UGLUCOSE NEGATIVE (NEGATIVE)
--- NOTE | 2018-09-27 03:30 | NUR ---
PT SLEEPING COMFORTABLY IN BED WITH VSS. SKIN PINK, WARM, DRY. BREATHING EVEN, UNLABORED. FLUIDS RUNNING.
--- NOTE | 2018-09-27 04:30 | NUR ---
PT SLEEPING COMFORTABLY IN BED WITH VSS. SKIN PINK, WARM, DRY. BREATHING EVEN, UNLABORED. FLUIDS RUNNING.
[2018-09-27 05:19] VITALS: BP 97/58
--- NOTE | 2018-09-27 05:19 | NUR ---
Patient discharged with v/s stable. Written and verbal after care instructions given and explained. Patient verbalized understanding. Ambulatory with steady gait. All questions addressed prior to discharge. Advised to follow up with PMD. Discharged by Dr. Gonzalez.
== END 2018-09-27 05:20 | disposition home or self-care (01) ==
LOC: MED 23:14
DX: E86.0 Dehydration (principal); R11.2 Nausea with vomiting, unspecified; M54.5 Low back pain; R07.89 Other chest pain; I10 Essential (primary) hypertension; E11.9 Type 2 diabetes mellitus without complications; C79.31 Secondary malignant neoplasm of brain; Z79.2 Long term (current) use of antibiotics; Z79.899 Other long term (current) drug therapy; Z90.5 Acquired absence of kidney
CPT/HCPCS: 36415; 80053; 81003; 85025; 93005; 96360; 96361; 99284; J7030

== ENCOUNTER 2018-12-29 21:39 | Emergency (ER) | payer OTHER ==
[~2018-12-29] VITALS: Ht 167.6 cm; Wt 63.0 kg
[2018-12-29 21:45] VITALS: BP 131/83
--- NOTE | 2018-12-29 21:59 | NUR ---
PT AMBULATED TO BED 4
--- NOTE | 2018-12-29 22:01 | NUR ---
PT AMBULATED TO BED 04 WITH CANE ASSIST. EMT AND RN AT BEDSIDE TO BEGIN ASSESSMENT AND EKG.
--- NOTE | 2018-12-29 22:04 | NUR ---
63 Y/O M PRESENTS TO ER C/O CHEST PAIN X3-4 DAYS. PT HAS LEFT SIDED CHEST PAIN THAT RADIATES TO THE BACK, BACK PAIN IS MORE SEVERE THAN CHEST PAIN. PAIN LEVEL 8/10, SHARP CHEST PAIN, AND BURNING BACK PAIN. VSS. DENIES SOB. DENIES N/V/D. ALLERGIES: NKA. MED HX: DM, HTN, AND KIDNEY CANCER. PT IS RECEIVING CHEMOTHERAPY X1 MONTH. SAFETY MEASURES IN PLACE. ERMD MADE AWARE OF PT STATUS.
--- NOTE | 2018-12-29 22:07 | NUR ---
LAB AT BEDSIDE
--- NOTE | 2018-12-29 22:07 | NUR ---
XRAY AT BEDSIDE
[2018-12-29 22:24] LABS: BASOPHILS % (AUTO) 0.1 % (0.0-2.0); HEMATOCRIT 33.2 % (36-52); HEMOGLOBIN 11.2 g/dL (12.0-18.0); LYMPHOCYTES % (AUTO) 11.4 % (20.5-51.1); MEAN CORPUSCULAR HEMOGLOBIN 31 pg (27-31); MEAN CORPUSCULAR HGB CONC 34 g/dL (33-37); MEAN CORPUSCULAR VOLUME 92.6 fL (80-94); MONOCYTES # (AUTO) 0.5 K/uL (0.8-1.0); MONOCYTES % (AUTO) 6.2 % (1.7-9.3); NEUTROPHILS # (AUTO) 6.9 K/uL (1.8-7.7); NEUTROPHILS % (AUTO) 82.3 % (42.2-75.2); PLATELET COUNT (AUTO) 171 K/uL (140-450); RED BLOOD CELL COUNT(AUTO) 3.59 MIL/uL (4.20-6.10); RED CELL DISTRIBUTION WIDTH 18.8 % (11.6-13.7); WHITE BLOOD COUNT (AUTO) 8.4 K/uL (4.8-10.8)
[2018-12-29 22:34] LABS: ANION GAP 12.8 (8-16); CARBON DIOXIDE 28.4 mmol/L (21-32); CREATININE 0.8 mg/dL (0.7-1.3); POTASSIUM 4.2 mmol/L (3.5-5.1)
--- NOTE | 2018-12-29 23:00 | NUR ---
PT RESTING IN BED TEXTING ON CELL PHONE. VSS. WILL CONTINUE TO MONITOR.
[2018-12-29] MEDS ORDERED: HYDROcodone/APAP 5/325 MG 1 TAB TAB PO ONE (23:05)
--- NOTE | 2018-12-29 23:59 | NUR ---
ERMD AT BEDSIDE
[2018-12-30 00:44] VITALS: BP 137/73
--- NOTE | 2018-12-30 00:44 | NUR ---
Patient discharged with v/s stable. Written and verbal after care instructions given and explained. Patient alert, oriented and verbalized understanding of instructions. Ambulatory with to home. All questions addressed prior to discharge. ID band removed. Patient advised to follow up with PMD. Rx of NORCO given. Patient educated on indication of medication including possible reaction and side effects. Opportunity to ask questions provided and answered.
== END 2018-12-30 00:45 | disposition home or self-care (01) ==
LOC: MED 21:39
DX: R07.89 Other chest pain (principal); E11.65 Type 2 diabetes mellitus with hyperglycemia; I10 Essential (primary) hypertension; Z85.841 Personal history of malignant neoplasm of brain; Z79.899 Other long term (current) drug therapy; Z98.890 Other specified postprocedural states
CPT/HCPCS: 36415; 71045; 80048; 82948; 83880; 84484; 85025; 99284; Q0092; 93005